=== PATIENT | female | born 1970 | race Caucasian/White ===

== ENCOUNTER → 2019-04-20 | Outpatient (CLI) | payer OTHER, BC ==
[2016-05-31 08:24] VITALS: BP 117/77
[~2019-04-20] MED LIST: CIPR500T94 PO; HYDR-3165 PO; LEVO25TA4 PO; METR250T PO; PHEN100T82 PO; SULF1TAB24 PO
--- NOTE | 2019-04-20 17:11 | RAD ---
EXAM: 3 Views Left Shoulder DATE: 04/20/2019 12:00 AM INDICATION: Left shoulder pain COMPARISON: No Prior FINDINGS: There is no evidence for acute fracture or dislocation. AC joint is congruent. Humeral head is not high riding. IMPRESSION: 1. No acute fracture or dislocation. Electronically signed by: Tushar Kidd MD (04/20/2019 5:08 PM) [id number]
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
== END | disposition home or self-care (01) ==
LOC: DXRAD 15:30
PROVIDERS: ATTEND Physician Assistant
DX: S13.9XXA Sprain of joints and ligaments of unspecified parts of neck, initial encounter (principal); S46.912A Strain of unspecified muscle, fascia and tendon at shoulder and upper arm level, left arm, initial encounter; S63.502A Unspecified sprain of left wrist, initial encounter; M47.812 Spondylosis without myelopathy or radiculopathy, cervical region; V89.2XXA Person injured in unspecified motor-vehicle accident, traffic, initial encounter
CPT/HCPCS: 72050; 73030; 73100

== ENCOUNTER → 2020-02-27 | Outpatient (CLI) | payer BC ==
[2016-05-31 08:24] VITALS: BP 117/77
--- NOTE | 2020-02-28 14:19 | RAD ---
Examination: Limited left breast ultrasound. INDICATION: Screening recall for nodularity in the left breast. COMPARISON: Bilateral screening mammogram of 02/17/2020. TECHNIQUE: Grayscale ultrasound imaging of the left breast in the area of mammographic concern was performed. FINDINGS: Ultrasound identifies at the 6:30 o'clock position 2.5 cm from the nipple, a 1.2 cm mixed solid and cystic mass with thick internal septations with no internal vascularity. Although this could represent fibrocystic change, it is mildly suspicious and ultrasound-guided core needle biopsy is recommended. IMPRESSION: Low index of suspicion for malignancy but suspicious 1.3 cm mixed solid and cystic mass in the left breast at the 6:30 o'clock position 2.5 cm from the nipple. Ultrasound-guided core needle biopsy is recommended. Discussed with the patient's referring provider BRICE Bird by telephone at 1:49pm on 02/28/20. BI-RADS Category 4 Findings suspicious for malignancy. Biopsy recommended
== END ==
LOC: US 13:46
PROVIDERS: ATTEND Physician Assistant
DX: N60.02 Solitary cyst of left breast (principal)
CPT/HCPCS: 76641

== ENCOUNTER → 2020-09-28 | Outpatient (CLI) | payer BC ==
[2016-05-31 08:24] VITALS: BP 117/77
--- NOTE | 2020-09-28 19:08 | RAD ---
Examination: 1. Left diagnostic mammogram. 2. Limited left breast ultrasound. INDICATION: 50-year-old woman who was initially recommended for ultrasound-guided core needle biopsy of the left breast mass but will ultimately underwent excisional biopsy at an outside facility with b enign pathology results, now presenting for short-term follow-up of benign surgical excisional result s. COMPARISON: Bilateral mammogram of 02/17/2020 TECHNIQUE: CC and LM views of the left breast were obtained and reviewed with computer-aided detectio n. Targeted ultrasound of the inferior left breast was also performed. FINDINGS: Heterogeneously dense breast parenchyma. There is nodularity in the inferior left breast in the similar location to the mass initially recomme nded for biopsy however this has a slightly rounded shape compared with the ovoid shaped evident prev iously. This could reflect postbiopsy changes. Targeted ultrasound of the inferior left breast shows a lobulated nonshadowing 1.3 cm mass that appea rs part of a large, 2.2 cm mass that could also represent postsurgical biopsy changes. IMPRESSION: Probably benign postsurgical change in the inferior left breast. Recommend 6 month follow-up left diagnostic mammogram and targeted breast ultrasound. At that time, correlation with the outside facility breast imaging if any was performed, would be he lpful. BI-RADS Category 3 Probably benign findings Patient entered into a reminder system with targeted due date for next mammogram. Electronically signed by: Claire Akhtar MD (09/28/2020 7:06 PM) [id number]
== END ==
LOC: US 12:56
DX: R92.2 Inconclusive mammogram (principal); N63.20 Unspecified lump in the left breast, unspecified quadrant
CPT/HCPCS: 76641; 77065; G0279; 77061

== ENCOUNTER → 2021-03-29 | Outpatient (CLI) | payer BC ==
[2016-05-31 08:24] VITALS: BP 117/77
--- NOTE | 2021-03-29 14:41 | RAD ---
US BREAST LTD LT, MG DIGITAL BILAT DIAGNOSTIC MAMMO WITH SARTHAK 03/29/2021 2:03 PM INDICATION: Asymptomatic screening mammogram. COMPARISON: Breast ultrasound 09/28/2020, 02/27/2020, prior mammogram from 09/28/2020 TECHNIQUE: 3D tomosynthesis was performed in CC and MLO projections. 2D views were obtained from the 3D data. CAD was utilized as needed. Limited sonographic evaluation of the left breast was performed. FINDINGS: Breast density: Category C: The breats are heterogeneously dense, which may obscure small masses. Right breast: There are no suspicious microcalcifications, masses or areas of architectural distortio n. Left breast: There are no suspicious microcalcifications, masses or areas of architectural distortion . Bilateral mammogram is compared to prior examinations appears unchanged. Limited sonographic evaluation left breast with stable irregular hypoechoic mass in the left breast a t the 6:30 position, 2.5 cm from the nipple at the site of prior benign breast biopsy. Findings favor benign etiology given stability. IMPRESSION: Benign findings of the left breast. Negative right mammogram. BI-RADS category: 2; Benign Recommendations: Recommend annual screening mammography in one year. Electronically signed by: Georgette Bah MD (03/29/2021 2:39 PM) [id number]
== END ==
LOC: MAMMO 13:19
PROVIDERS: ATTEND Physician Assistant
DX: N63.24 Unspecified lump in the left breast, lower inner quadrant (principal)
CPT/HCPCS: 76642; 77066; G0279; 77062